=== PATIENT | male | born 1980 | race Hispanic/Latino ===

== ENCOUNTER 2022-10-05 17:59 | Emergency (ER) | payer SELFPAY ==
[~2022-10-05] VITALS: Ht 160 cm; Wt 62.2 kg
[~2022-10-05 17:59] MED LIST: CEPHALEXIN500 MG OR; NO HOME MEDS
[2022-10-05 18:08] VITALS: BP 144/91
[2022-10-05 18:16] VITALS: BP 156/92
[2022-10-05 18:26] VITALS: BP 144/93
[2022-10-05] MEDS ORDERED: PREDNISONE20 MG PO (19:01)
[2022-10-05] MEDS ORDERED: NAPROXEN500 MG PO (19:01)
[2022-10-05 19:27] VITALS: BP 128/88
== END 2022-10-05 19:33 | disposition home or self-care (01) | DRG 556 ==
LOC: ED 17:59
DX: M25.572 Pain in left ankle and joints of left foot (principal)

== ENCOUNTER 2023-03-01 19:11 | Emergency (ER) | payer SELFPAY ==
[~2023-03-01] VITALS: Ht 160 cm; Wt 72.0 kg
[~2023-03-01 19:11] MED LIST changes: +NAPROXEN500 MG PO; +PREDNISONE20 MG PO
[2023-03-01 19:58] VITALS: BP 140/104
== END 2023-03-01 20:16 | disposition left against medical advice (07) | DRG 951 ==
LOC: ED 19:11 → LWOBS 20:16
DX: Z53.21 Procedure and treatment not carried out due to patient leaving prior to being seen by health care provider (principal)